=== PATIENT | female | born 1950 | race Caucasian/White ===

== ENCOUNTER 2018-12-22 15:08 | Emergency (ER) | payer MEDICARE, BC ==
[~2018-12-22] VITALS: Ht 162.6 cm; Wt 76.9 kg
[~2018-12-22 15:08] MED LIST: ALIGN4 MG; CIPROFLOXACIN500 M1 PO; CLARITIN5 MG; CYMBALTA20 MG; DOXEPIN 10 MG C10 MG PO; GAVISCON TABLE1 EACH PO; PREDNISONE 10 M10 M1 PO; PROTONIX40 MG PO; ULTRAM 50MG TAB50 MG PO; XANAX 0.5 MG0.5 M1; XANAX XR2 MG; ZPAK PO
[2018-12-22] MEDS ORDERED: COZAAR 25 MG TA25 M1 PO (15:30)
[2018-12-22] MEDS ORDERED: ORPHENADRINE C100 M2 PO (15:31)
[2018-12-22] MEDS ORDERED: DULCOLAX5 MG PO (15:31)
[2018-12-22] MEDS ORDERED: NORCO 5-325 TA1 EACH PO (15:32)
[2018-12-22] MEDS ORDERED: ASPIR 8181 MG PO (15:32)
[2018-12-22 15:53] LABS: ABSOLUTE BASOPHILS 0.1 thou/uL (0.0-0.2); ABSOLUTE EOSINOPHILS 0.1 thou/uL (0.0-0.7); ABSOLUTE LYMPHOCYTES 1.2 thou/uL (0.8-5.3); ABSOLUTE MONOCYTES 0.5 thou/uL (0.0-1.2); ABSOLUTE NEUTROPHILS 4.7 thou/uL (1.6-8.1); BASOPHILS 0.8 %; EOSINOPHILS 0.9 %; HEMATOCRIT 33.1 % (37.0-47.0); HEMOGLOBIN 11.1 gm/dL (12.0-15.0); MCH 28.5 pg (26.0-34.0); MCHC 33.5 g/dL (28.0-37.0); MCV 85.3 fL (80.0-100.0); MONOCYTES 8.1 %; NUCLEATED RBCS 0 /100WBC; PLATELET COUNT* 376 thou/uL (150-400); POLYS 71.2 %; RBC 3.87 mil/uL (4.20-5.00); RDW-CV 14.3 % (10.5-14.5); WBC 6.6 thou/uL (4.0-11.0)
--- NOTE | 2018-12-22 16:01 | EKG ---
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1950 Requested By: Lamine Joseph Order Number: [id number] MD: Casper Nguyễn Measurements Intervals Lyman Rate: 71 P: 30 WI: 175 QRS: -18 QRSD: 91 T: 17 QT: 379 QTc: 412 Interpretive Statements Sinus rhythm Borderline left axis deviation Abnormal R-wave progression, early transition Baseline wander in lead(s) V1,V2 Compared to ECG 08/22/2012 00:44:13 Sinus bradycardia no longer present Poor R-wave progression no longer present Electronically Signed On 12-22-2018 16:00:49 CDT by Casper Nguyễn [email or web address] <ELECTRONICALLY SIGNED> By: Casper Nguyễn MD, FACC 12/22/18 1600 1527 1527 Casper Nguyễn MD, [facility] /EPI
[2018-12-22 16:11] LABS: ANION GAP 7 mmol/L (7-16); BUN 10 mg/dL (7-18); CHLORIDE 99 mmol/L (98-107); CO2 29 mmol/L (21-32); CREATININE 0.8 mg/dL (0.6-1.3); GLUCOSE 97 mg/dL (70-99); SODIUM 135 mmol/L (136-145); TROPONIN-I LEVEL <0.06 ng/mL (<0.06)
[2018-12-22 16:18] LABS: ALBUMIN 3.5 g/dL (3.4-5.0); ALKALINE PHOSPHATASE 65 U/L (46-116); LIPASE 116 U/L (73-393); MAGNESIUM 2.3 mg/dL (1.8-2.4); NT-PRO BRAIN NAT PEPTIDE 45 pg/mL (<300); SGOT 16 U/L (15-37); SGPT 25 U/L (30-65); TOTAL BILIRUBIN 0.4 mg/dL (<0.1-1.0); TOTAL PROTEIN 6.8 g/dL (6.4-8.2)
[2018-12-22 17:33] VITALS: BP 145/77
== END 2018-12-22 17:34 | disposition left against medical advice (07) ==
LOC: M.ERS 15:08
PROVIDERS: Emergency Medicine Emergency Medical Services
DX: R07.89 Other chest pain (principal); R53.1 Weakness; F41.9 Anxiety disorder, unspecified; F32.9 Major depressive disorder, single episode, unspecified; Z90.49 Acquired absence of other specified parts of digestive tract; Z90.710 Acquired absence of both cervix and uterus; Z87.891 Personal history of nicotine dependence; Z88.0 Allergy status to penicillin; Z91.013 Allergy to seafood; Z88.8 Allergy status to other drugs, medicaments and biological substances

== ENCOUNTER → 2021-06-13 | Outpatient (CLI) | payer MEDICARE, BC ==
[~2021-06-13] VITALS: Ht 162.6 cm; Wt 87.1 kg
[~2021-06-13] MED LIST changes: +ASPIR 8181 MG PO; -CLARITIN5 MG; +CLARITIN5 MG PO; +COZAAR 25 MG TA25 M1 PO; +CYMBALTA30 MG PO; +DULCOLAX5 MG PO; +NORCO 5-325 TA1 EACH PO; +ORPHENADRINE C100 M2 PO; -XANAX 0.5 MG0.5 M1; +XANAX 0.5 MG0.5 M1 PO
[2021-06-13 11:54] VITALS: BP 147/78
== END ==
LOC: M.INT 11:03
PROVIDERS: ATTEND Family Medicine
DX: S22.071A Stable burst fracture of T9-T10 vertebra, initial encounter for closed fracture (principal); M54.50 Low back pain, unspecified; W19.XXXA Unspecified fall, initial encounter; Y93.89 Activity, other specified; Y92.89 Other specified places as the place of occurrence of the external cause; Y99.8 Other external cause status

== ENCOUNTER → 2021-06-18 | Outpatient (CLI) | payer MEDICARE, BC ==
[~2021-06-18] VITALS: Ht 162.6 cm; Wt 87.6 kg
[2021-06-18 09:20] VITALS: BP 141/81
[2021-06-18 09:28] LABS: HEMATOCRIT 37.3 % (37.0-47.0); HEMOGLOBIN 12.7 gm/dL (12.0-15.0); MCHC 33.9 g/dL (28.0-37.0); MCV 85.3 fL (80.0-100.0); MPV 6.4 fl. (7.2-11.1); RBC 4.37 mil/uL (4.20-5.00); RDW-CV 13.4 % (10.5-14.5)
[2021-06-18 09:42] LABS: APTT 27.9 Seconds (25.0-31.3); PROTIME 10.5 Seconds (9.20-11.50)
== END | disposition home or self-care (01) ==
LOC: M.INT 08:14
PROVIDERS: Radiology Diagnostic Radiology; ATTEND Radiology Diagnostic Radiology
DX: M80.08XA Age-related osteoporosis with current pathological fracture, vertebra(e), initial encounter for fracture (principal); I10 Essential (primary) hypertension; K21.9 Gastro-esophageal reflux disease without esophagitis; J44.9 Chronic obstructive pulmonary disease, unspecified; F03.90 Unspecified dementia, unspecified severity, without behavioral disturbance, psychotic disturbance, mood disturbance, and anxiety; G20 Parkinson's disease; Z98.890 Other specified postprocedural states; Z79.899 Other long term (current) drug therapy; Z87.891 Personal history of nicotine dependence; Z88.0 Allergy status to penicillin; Z88.8 Allergy status to other drugs, medicaments and biological substances

== ENCOUNTER 2021-08-06 09:36 | Inpatient (IN) | payer MEDICARE, BC ==
[~2021-08-06] VITALS: Ht 162.6 cm; Wt 86.2 kg
[~2021-08-06 09:36] MED LIST changes: -ASPIR 8181 MG PO; +BAYER CHEWABLE81 MG PO; -NORCO 5-325 TA1 EACH PO; +NORCO5 PO
[2021-08-06] MEDS ORDERED: TRAMADOL 50 MG50 MG PO (11:38)
[2021-08-06 11:40] VITALS: BP 145/93; BP 147/94
[2021-08-06 12:19] LABS: HEMATOCRIT 35.7 % (37.0-47.0); HEMOGLOBIN 12.1 gm/dL (12.0-15.0); MCH 28.9 pg (26.0-34.0); MCV 84.9 fL (80.0-100.0); MPV 6.4 fl. (7.2-11.1); RBC 4.2 mil/uL (4.20-5.00); RDW-CV 13.6 % (10.5-14.5); WBC 7.2 thou/uL (4.0-11.0)
[2021-08-06 12:34] LABS: CREATININE 0.7 mg/dL (0.6-1.3); POTASSIUM 4.1 mmol/L (3.5-5.1)
[2021-08-06 12:39] LABS: APTT 28.8 Seconds (25.0-31.3); PROTIME 10.5 Seconds (9.20-11.50)
[2021-08-06 17:20] VITALS: BP 154/92
--- NOTE | 2021-08-06 19:34 | NUR ---
ALERT AND AGITATED. DR. FRANCO CALLED FOR MEDICATION ORDERS. ORDERS OBTAINED. PT STILL TRYING TO CALL POLICE. SECURITY CALLED AND AT PT'S BEDSIDE. HOUSESUPERVISOR HERE TRYING TO HELP CALM PT. DAUGHTER MAURO CALLED AND PLANISHING PRESS OPERATOR TALKED WITH HER. DAUGHTERS PHONE NUMBER [phone]. WILL CONTINUE TO MONITOR.
[2021-08-06 21:00] VITALS: BP 128/81
--- NOTE | 2021-08-07 04:56 | NUR ---
ASSUMED CARE AT 1930. PATIENT VERY RESTLESS, WALKING IN ROOM, WANTING TO CALL THE POLICE. UNCOOPERATIVE WITH NURSING. SECURITY CALLED, SECURITY WAS NOT WHAT SHE WANTED. FAMILY CONTACTED, BUT FAMILY WAS ALREADY BACK HOME IN [place], [place], MORE THAN AN HOUR AWAY AND REFUSED TO RETURN TO HOSPITAL. NURSING QUANTITATIVE EQUITY HEAD WITH PATIENT FOR A WHILE. DAY SHIFT OBTAINED ORDERS FOR GEODON. THIS GIVEN BY BI DATA ARCHITECT. PLACED ON CONTINUOUS PULSE OX, WHICH SHOWED 87-88. O2 2L/NC PLACED ON PATIENT, WHO STATED, "I DON'T WEAR OXYGEN ALL THE TIME AT HOME, BUT SOMETIMES." PATIENT DID SETTLE DOWN AND SLEEP FOR A WHILE, BUT WOKE UP AGAIN NEEDING TO VOID BEFORE MIDNIGHT. DUE TO MEDICINES ON BOARD, AND CONCERN FOR SAFETY, PATIENT STRONGLY ENCOUARGED REPEATEDLY TO USE THE BEDPAN. PATIENT FLATLY REPEATEDLY REFUSED TO ATTEMPT THE BEDPAN AND BECAME IMPULSIVE, ATTEMPTING TO CLIMB OOB NEAR THE FOOT RAILS DESPITE EDUCATION REGARDING SAFETY. BED ALARM ON, AND ALERTED NURSING TO IMPULSIVE BEHAVIOR. PHYSICIAN CALLED AGAIN, BECAUSE PATIENT HAD NO ORDERS FOR PAIN MEDS AND ALSO OBTAINED ORDER FOR BENADRYL AND RESUMPTION OF HOME MED OF XANAX. GIVEN PAIN MED, PT STILL TRYING TO CLIMB OOB REFUSING TO USE BEDPAN. PATIENT REFUSED XANAX. NURSING QUANTITATIVE EQUITY HEAD AND FAMILY PROGRAM SPECIALIST EVENTUALLY GOT PATIENT UP TO [facility] WHERE PT VOIDED AND HAD BM, THEN RETURNED TO SLEEP. O2 2L/NC CONTINUES. PATIENT SLEEPING WITH GENTLE SNORING RESPS NOTED AT THIS TIME. CLOSE OBSERVATION CONTINUE. BED ALARM ON. CALL LITE IN REACH.
--- NOTE | 2021-08-07 05:41 | NUR ---
PATIENT HAS AWOKEN, AND DOES NOT LISTEN TO ATTEMPTS TO ORIENT PATIENT TO REALITY. PATIENT ASKING FOR . CALLED, BUT NO ANSWER, MESSAGE LEFT ON MACHINE ASKING HIM TO CALL THE HOSPITAL. PATIENT UP TO VOID. HAS REMOVED PULSE OX, AND ATTEMPTING TO REMOVE SALINE LOCK. RANGE AID WITH PATIENT AND GIVING CALM DIRECTIVES TO PATIENT. WILL CONTINUE TO MONITOR.
--- NOTE | 2021-08-07 06:52 | NUR ---
CROWN BUFFER IN ROOM CONSTANTLY IN ORDER TO MAINTAIN SAFETY OF PATIENT IN LIGHT OF FALL RISK.
[2021-08-07 08:00] VITALS: BP 138/76
--- NOTE | 2021-08-07 09:56 | NUR ---
Pt is admitted on 08/06/21 for new L1 Fx. Pt has a hx of Dementia. Pt is alert, and oriented to name, place, and month. Pt demonstrates confusion and paranoia. She reports her spouse brought her to the hospital and left her and she is convinced her spouse and daughter "have something cooking up and it's not right." Documentation shows patient has low NA. Pt could be a candidate for a new Kyphoplasty or Vertebroplasty. Pt is seems to be aware she is here due to needing a procedure for her back. Pt lives with her spouse in a house in [place], [place]. Pt is difficult to direct at times. Pt denies hx of SNF, DME, or HH. Attempted to contact spouse with no answer. Anticipate pt could need HH or DME. CM to follow pt for discharge planning.
[2021-08-07 10:57] LABS: ABSOLUTE EOSINOPHILS 0.1 thou/uL (0.0-0.7); ABSOLUTE LYMPHOCYTES 0.6 thou/uL (0.8-5.3); ABSOLUTE MONOCYTES 0.4 thou/uL (0.0-1.2); ABSOLUTE NEUTROPHILS 5.6 thou/uL (1.6-8.1); BASOPHILS 0.5 %; EOSINOPHILS 1.1 %; HEMOGLOBIN 11.5 gm/dL (12.0-15.0); LYMPHOCYTES 8.4 %; MCH 29.3 pg (26.0-34.0); MCHC 33.8 g/dL (28.0-37.0); MCV 86.5 fL (80.0-100.0); MONOCYTES 6.1 %; MPV 6.1 fl. (7.2-11.1); NUCLEATED RBCS 0 /100WBC; PLATELET COUNT* 366 thou/uL (150-400); POLYS 83.9 %; RBC 3.93 mil/uL (4.20-5.00); RDW-CV 13.8 % (10.5-14.5); WBC 6.7 thou/uL (4.0-11.0)
[2021-08-07 11:20] LABS: CALCIUM 9.1 mg/dL (8.5-10.1); CREATININE 0.8 mg/dL (0.6-1.3)
[2021-08-07 12:56] LABS: AMP/METHAMP Negative (Negative); BARBITURATES Negative (Negative); BENZODIAZEPINES POSITIVE (Negative); COCAINE Negative (Negative); METHADONE Negative (Negative); OPIATES POSITIVE (Negative); PCP Negative (Negative); THC Negative (Negative)
--- NOTE | 2021-08-07 17:36 | NUR ---
CM FOLLOWUP PT'S SODIUM LEVELS IMPROVING AND [facility] CONTACTED TO ARRANGE PROCEDURE. [facility] IR TO COME TO [facility] ON 08/08/[address] [facility] IR REQUESTING [facility] ANESTHESIA TO BE PRESENT DURING PROCEDURE. [facility] ANESTHESIA TO BE CONTACTED TOMORROW TO DETERMINE WHAT TIME THEY MAY BE AVAILABLE FOR PROCEDURE.
[2021-08-07 21:00] VITALS: BP 153/92
[2021-08-08 05:24] LABS: CALCIUM 8.4 mg/dL (8.5-10.1); CREATININE 0.6 mg/dL (0.6-1.3); POTASSIUM 3.7 mmol/L (3.5-5.1)
[2021-08-08 07:15] VITALS: BP 167/90
--- NOTE | 2021-08-08 07:52 | NUR ---
Patient is confused. She may be more so at night. Her was bedside and he helped a lot. Vitals were stable. She slept through the night.
--- NOTE | 2021-08-08 12:44 | CON ---
[address] [address] CONSULTATION Name: DINORA VICK Room: [address] IN M.R.#: [id number] Admission: 08/07/21 Attend Phys: Macho Sherman Discharge: Date of : 52 Report #: [id number] THIS REPORT FOR: cc: Jesi Peters Maggie M. DO Khan, Abid R. MD ~ DATE OF CONSULTATION: 08/07/2021 NEPHROLOGY CONSULT CONSULTING PHYSICIAN: Ar Puckett DO REASON FOR CONSULT: Hyponatremia. HISTORY OF PRESENT ILLNESS: This is a 70-year-old female who was admitted with hyponatremia. She has an L1 compression fracture with plans for a vertebro and/or kyphoplasty. She tells me she has had some degree of hyponatremia in the past, has not seen a hydrologic engineer. She has poor oral intake, misses meals regularly and drinks at least a gallon of water a day. In 05/[address] [facility], had a sodium of 135. In 2019 in our system, she had a sodium of 135. She has been having some back pain. Denies any new medications. Denies any unexpected weight loss, otherwise, has no complaints. REVIEW OF SYSTEMS: Constitutional, psych, heme, eyes, ENT, respiratory, cardiac, GI, , endocrine, all negative except as documented above. PAST MEDICAL HISTORY: COPD; urinary retention, followed by Dr. Flores at [facility]; Lewy body dementia with atypical parkinsonism, tremor and gait disturbance; hypertension. FAMILY HISTORY: Nonpertinent in this 70-year-old female. SOCIAL HISTORY: No active tobacco. CURRENT MEDICATIONS: Reviewed. PHYSICAL EXAMINATION: VITAL SIGNS: Blood pressure 128/81, pulse 86, respirations 18, temperature 36.4. GENERAL: No acute distress. HEENT: Eyes: Open. Ears: Externally normal. NECK: Supple. CARDIOVASCULAR: Regular rate. LUNGS: No crackles. GASTROINTESTINAL: [place] [address] CONSULTATION Name: DINORA VICK Room: [address] IN [facility].#: [id number] Admission: 08/07/21 Attend Phys: Macho Sherman Discharge: Date of : 52 Report #: [id number] MUSCULOSKELETAL: Nontender. PSYCHIATRIC: Awake, alert. LABORATORY DATA: White cell count 6.7, hemoglobin 11.5, platelets 336. Sodium 133, potassium 4, chloride 98, bicarbonate 27, BUN 9, creatinine 0.8, glucose 131, calcium 9.1. ASSESSMENT: 1. Hyponatremia with a sodium of 129 in the setting of poor oral intake and missed meals, 1 gallon plus of water intake daily, back pain and selective serotonin reuptake inhibitor. 2. Hypertension. 3. Chronic obstructive pulmonary disease. 4. Urinary retention, followed by Dr. Flores at [facility]. 5. Lewy body dementia with atypical parkinsonism, tremor and gait disturbance. PLAN: Lab today is pending. We will institute a 1.5 liter per day fluid restriction. Check urine sodium, urine osmolarity and TSH. Thank you for requesting my opinion in the care and management of this patient. <ELECTRONICALLY SIGNED> By: Lydia Sánchez MD 08/08/21 1244 1106 [id number] Sánchez MD /nt
[2021-08-08 15:21] VITALS: BP 167/90
[2021-08-08 15:37] VITALS: BP 167/90
--- NOTE | 2021-08-08 17:57 | NUR ---
CM FOLLOWUP PT DC'D FOLLOWING PROCEDURE. PT DC HOME WITH HH SERVICES PROVIDED BY [facility] ([phone]).
== END 2021-08-08 16:15 | disposition home health service (06) | DRG 516 ==
LOC: M.INT 09:36 → M.TBA-CV 13:15 → M.3W 17:17
PROVIDERS: Internal Medicine Nephrology; Radiology Diagnostic Radiology; ADMIT Internal Medicine; ATTEND Internal Medicine
PROC: 0QS03ZZ Reposition Lumbar Vertebra, Percutaneous Approach (ICD-10-PCS; principal; 2021-08-08)
PROC: 0QU03JZ Supplement Lumbar Vertebra with Synthetic Substitute, Percutaneous Approach (ICD-10-PCS; principal; 2021-08-08)
DX: S32.019A Unspecified fracture of first lumbar vertebra, initial encounter for closed fracture (principal); E87.1 Hypo-osmolality and hyponatremia; J44.9 Chronic obstructive pulmonary disease, unspecified; I10 Essential (primary) hypertension; K21.9 Gastro-esophageal reflux disease without esophagitis; F02.80 Dementia in other diseases classified elsewhere, unspecified severity, without behavioral disturbance, psychotic disturbance, mood disturbance, and anxiety; R33.9 Retention of urine, unspecified; G31.83 Neurocognitive disorder with Lewy bodies; W18.39XA Other fall on same level, initial encounter; Z88.8 Allergy status to other drugs, medicaments and biological substances; Z88.0 Allergy status to penicillin; Z91.013 Allergy to seafood; Y93.89 Activity, other specified; Y92.89 Other specified places as the place of occurrence of the external cause; Y99.8 Other external cause status; Z28.21 Immunization not carried out because of patient refusal